=== PATIENT | male | born 2000 | race Caucasian/White ===

== ENCOUNTER 2020-07-17 21:28 | Emergency (ER) | payer OTHER ==
[~2020-07-17] VITALS: Ht 175.3 cm; Wt 85.3 kg
[2020-07-17] MEDS ORDERED: Prednisone20 MG PO (22:46)
== END 2020-07-17 23:06 | disposition home or self-care (01) ==
LOC: ER 21:28
DX: T78.40XA Allergy, unspecified, initial encounter (principal); L50.0 Allergic urticaria; E10.9 Type 1 diabetes mellitus without complications
CPT/HCPCS: 82947; 99283; A9270; J7512